=== PATIENT | female | born 1990 | race Two or more races ===

== ENCOUNTER 2025-07-09 06:57 | Day surgery (SDC) | payer OTHER ==
[~2025-07-09] VITALS: Ht 160 cm; Wt 79.8 kg
--- NOTE | 2025-07-09 06:15 | NUR ---
PACIENTE ALERTA Y ORIENTADA POR 3, REFIERE TENER CAMELIA PARA RASPE DE POLLARD EMBARAZO DE 13 SEMANAS. SE LE HECTOR S/V Y SE REFIERE PACIENTE PARA CONTINUAR POLLARD TRATAMIENTO.
[2025-07-09] MEDS ORDERED: 0.9 % SODIUM CHLORIDE 1,000 ML IV STA (07:27)
--- NOTE | 2025-07-09 08:16 | NUR ---
SE ORIENTA A PACIENTE SOBRE ORDEN MEDICA LA MISMA REFIERE ENTENDER Y ACEPTA. PACIENTE EN SYDNIE CON BARANDAS ELEVADAS EN ESPERA DE CONSULTA.
[2025-07-09 08:29] LABS: BASO % 0.4 % (0.1-1.2); EOS # 0.11 (0.04-0.54); EOS % 2.1 % (0.7-7.0); LYMPH # 1.48 (1.18-3.74); LYMPH % 28.7 % (19.3-53.1); MEAN PLATELET VOLUME 10.40 fl (9.4-12.4); MONO # 0.42 (0.24-0.82); MONO % 8.1 % (4.7-12.5); NEUT # 3.12 (1.56-6.13); NEUT % 60.5 % (34.0-71.1); RED CELL DISTRIBUTION WIDTH 13.0 % (11.6-14.4)
[2025-07-09 08:56] LABS: INR 0.97
[2025-07-09] MEDS ORDERED: POVIDONE-IODINE 118 ML BOTT TOP SCH (12:45)
[2025-07-09] MEDS ORDERED: MORPHINE SULFATE 4 MG/ML VIAL IV ONE (13:15)
[2025-07-09 17:17] VITALS: BP 127/78; O2SAT 100
== END 2025-07-09 16:50 | disposition home or self-care (01) ==
LOC: CIR.AMB 06:57 → ER 06:57 → O/R 10:19 → CIR.AMB 16:50
PROVIDERS: ATTEND General Practice
DX: O02.1 Missed abortion (principal)